=== PATIENT | male | born 1935 | race Caucasian/White ===

== ENCOUNTER 2016-08-18 17:16 | Inpatient (IN) | payer MEDICARE ==
[~2016-08-18] VITALS: Ht 190.5 cm; Wt 74.1 kg
[2016-08-18 17:20] VITALS: BP 129/61; PULSE 98; RESP 19; TEMP 101.1; O2SAT 94
[2016-08-18] MEDS ORDERED: TAMS0.4C4 PO (17:48)
[2016-08-18] MEDS ORDERED: CARB25TA9 PO ×2 (17:48→19:51)
[2016-08-18] MEDS ORDERED: SIMV40TA PO (17:48)
[2016-08-18] MEDS ORDERED: METO25TA3 PO (17:48)
[2016-08-18] MEDS ORDERED: LISI-515 PO (17:48)
[2016-08-18] MEDS ORDERED: ASPI1TAB69 PO (17:48)
[2016-08-18 17:49] VITALS: BP 158/61; PULSE 91; RESP 18; TEMP 101; O2SAT 95
[2016-08-18] MEDS ORDERED: PIPERACIL-TAZO 3.375 GM PREMIX 50 ML IV ONE (18:00)
[2016-08-18] MEDS ORDERED: ACETAMINOPHEN 325 MG TAB PO ONE (18:00)
[2016-08-18] MEDS ORDERED: SODIUM CHLOR 0.9% 1000 ML INJ 1,000 ML IV ONE ×2 (18:00→19:00)
[2016-08-18] MEDS ORDERED: VANCOMYCIN INJ 1,150 MG in SODIUM CHLOR 0.9% 250 ML INJ 250 ML IV ONE (18:00)
--- NOTE | 2016-08-18 18:00 | PD ---
HPI Chief Complaint: Respiratory Symptoms Time Seen by Provider: 17:43 Travel History International Travel<30 days: No Contact w/Intl Traveler<30days: No Traveled to known affect area: No History of Present Illness HPI Patient is an 80-year-old male with history of hypertension, hyperlipidemia, Parkinson's disease who presents to emergency room with his son for evaluation of fevers, coughs, mental status changes for the past week. Patient reports that he has not been feeling well for the past week, reports that he has had increased nasal congestion, a productive cough, and intermittent fevers. Patient's son has been giving patient acetaminophen for his fevers, patient did receive a dose of aspirin prior to coming to the emergency room. Reports that he has been eating and drinking like his normal self, reports that today, patient appeared more lethargic and weak. He is alert and oriented 3, reports "I don't feel well." Patient denies any chest pain or shortness of breath. Patient denies any abdominal pain, nausea or vomiting. Patient with no sick contacts at home. PFSH Past Medical History High Cholesterol: Yes Diminished Hearing: Yes ([facility] [employer] [employer]) Hypertension: Yes Parkinson's Disease: Yes Influenza Vaccination: Yes ?: Not Past Surgical History Cardiac Surgery: Yes (ATHERECTOMY) Eye Surgery: Yes ([facility] [employer]) Social History Alcohol Use: No Tobacco Use: No Allergies-Medications (Allergen,Severity, Reaction): Coded Allergies: Penicillin (Verified Allergy, Unknown, 08/18/16) Reported Meds & Prescriptions Reported Meds & Active Scripts Active Reported Simvastatin 40 Mg Tab 40 Mg PO HS Aspirin 81 Mg Tabdr 81 Mg PO HS NEB Carbidopa-Levodopa 25-100 Mg Tab 1 Tab PO Q8HR Metoprolol Tartrate 25 Mg Tab 25 Mg PO DAILY Lisinopril 20 Mg Tab 20 Mg PO DAILY Tamsulosin (Tamsulosin HCl) 0.4 Mg Cap 0.4 Mg PO HS Review of Systems General / Constitutional: Positive: Fever, Chills Eyes: No: Visual changes HENT: Positive: Congestion, No: Headaches Cardiovascular: No: Chest Pain or Discomfort Respiratory: Positive: Cough, No: Shortness of Breath Gastrointestinal: No: Abdominal Pain Genitourinary: No: Dysuria Musculoskeletal: Positive: Myalgias, Weakness, No: Pain Skin: No Rash Neurologic: Positive: Weakness Psychiatric: No: Depression Endocrine: No: Polydipsia Hematologic/Lymphatic: No: Easy Bruising Physical Exam Narrative GENERAL: Moderate distress SKIN: Focused skin assessment warm/dry. HEAD: Atraumatic. Normocephalic. EYES: Pupils equal and round. No scleral icterus. No injection or drainage. ENT: No nasal bleeding or discharge. Mucous membranes pink and moist. NECK: Trachea midline. No JVD. CARDIOVASCULAR: Tachycardic. No murmur appreciated. RESPIRATORY: No accessory muscle use. Rhonchi to lung bases. Breath sounds equal bilaterally. GASTROINTESTINAL: Abdomen soft, non-tender, nondistended. Hepatic and splenic margins not palpable. MUSCULOSKELETAL: No obvious deformities. No clubbing. No cyanosis. No edema. NEUROLOGICAL: Awake and alert. No obvious cranial nerve deficits. Motor grossly within normal limits. Normal speech. PSYCHIATRIC: Appropriate mood and affect; insight and judgment normal. Data Data Last Documented VS Vital Signs Date Time Temp Pulse Resp B/P Pulse Ox O2 Delivery O2 Flow Rate FiO2 08/18/16 17:35 113 08/18/16 17:20 101.1 19 129/61 94 Orders Electrocardiogram (08/18/16 17:48) Complete Blood Count With Diff (08/18/16 17:48) Comprehensive Metabolic Panel (08/18/16 17:48) Prothrombin Time / Inr (Pt) (08/18/16 17:48) Act Partial Throm Time (Ptt) (08/18/16 17:48) Lactic Acid Sepsis Protocol (08/18/16 17:48) Magnesium (Mg) (08/18/16 17:48) Ckmb (Isoenzyme) Profile (08/18/16 17:48) Troponin I (08/18/16 17:48) Urinalysis - C+S If Indicated (08/18/16 17:48) Influenzae A/B Antigen (08/18/16 17:48) Blood Culture (08/18/16 17:48) Chest, Single Ap (08/18/16 17:48) Blood Glucose (08/18/16 17:48) Ecg Monitoring (08/18/16 17:48) Iv Access Insert/Monitor (08/18/16 17:48) Oximetry (08/18/16 17:48) Oxygen Administration (08/18/16 17:48) Acetaminophen (Tylenol) (08/18/16 18:00) Sodium Chlor 0.9% 1000 Ml Inj (Ns 1000 M (08/18/16 18:00) MDM Medical Decision Making Medical Screen Exam Complete: Yes Emergency Medical Condition: Yes Interpretation(s) Vital Signs Date Time Temp Pulse Resp B/P Pulse Ox O2 Delivery O2 Flow Rate FiO2 08/18/16 17:35 113 08/18/16 17:20 101.1 98 19 129/61 94 Differential Diagnosis Pneumonia, influenza, dehydration, electrolyte abnormality, ACS, viral syndrome Narrative Course Patient is an 80-year-old male who presents to emergency room for evaluation of possible pneumonia. Patient has not been feeling well for the past 5 days, reports cough, congestion, fever and chills. Patient's son who lives with him, reports the patient is more lethargic than normal, reports that he appears to be more "tired and sleepy today." Upon arrival to emergency room, patient is febrile with temperature of 101.1. Acetaminophen was ordered for patient. Patient was tachycardic with a heart rate in the 113, initial pulse ox was 94% on room air. Sepsis labs ordered for patient including lactate and blood cultures. He was ordered IV fluids, antibiotics ordered as well. Sepsis Criteria SIRS Criteria (2 or more): Temp > 100.9 or < 96.8, Heart rate over 90 Nayla Burch DO August 18, 2016 18:00
[2016-08-18 18:06] LABS: BLOOD, URINE SMALL (NEG); GLUCOSE,URINE NEG (NEG); KETONE, URINE TRACE mg/dL (NEG); NITRITE,URINE NEG (NEG); PH, URINE 5.5 (5.0-8.5)
[2016-08-18 18:07] LABS: AUTOMATED NEUTROPHIL # 9.8 TH/MM3 (1.8-7.7); BASOPHIL # 0.1 TH/MM3 (0-0.2); BASOPHIL % 0.5 % (0.0-2.0); EOSINOPHIL % 0.3 % (0.0-4.0); HEMATOCRIT 35.9 % (39.0-51.0); LYMPHOCYTE # 0.2 TH/MM3 (1.0-4.8); MEAN CELL VOLUME 96.3 FL (80.0-100.0); MEAN CORPUSCULAR HEMOGLOBIN 32.8 PG (27.0-34.0); MEAN CORPUSCULAR HGB CONC 34.1 % (32.0-36.0); MONO % 6.7 % (0.0-8.0); NEUT % 90.5 % (16.0-70.0); PLATELET COUNT 212 TH/MM3 (150-450); RED BLOOD COUNT 3.73 MIL/MM3 (4.50-5.90); RED CELL DISTRIBUTION WIDTH 13.5 % (11.6-17.2); WHITE BLOOD COUNT 10.8 TH/MM3 (4.0-11.0)
[2016-08-18 18:08] LABS: HEMO FLAGS DIFF FINAL
[2016-08-18 18:17] VITALS: BP 140/60; PULSE 88; RESP 18; O2SAT 99
[2016-08-18 18:21] LABS: METHOD OF COLLECTION CATH; URINE COLOR YELLOW (YELLW/STRAW)
[2016-08-18 18:22] LABS: COMMENT (UR) CATH-CULT NOT IND; CULTURE IF INDICATED CATH CULTURE NOT IND; MUCUS URINE FEW /lpf (OCC); SQUAMOUS EPITHELIAL CELL URINE 0-5 /hpf (0-5); WBC, URINE 0-2 /hpf (0-5)
[2016-08-18 18:24] LABS: CHLORIDE 108 MEQ/L (98-107); POTASSIUM 3.6 MEQ/L (3.5-5.1); SODIUM (NA) 144 MEQ/L (136-145)
[2016-08-18 18:28] LABS: ANION GAP 8 MEQ/L (5-15); BICARBONATE 28.4 MEQ/L (21.0-32.0); BLOOD UREA NITROGEN 21 MG/DL (7-18)
[2016-08-18 18:31] LABS: ALT (GPT) 31 U/L (12-78); AST (GOT) 34 U/L (15-37); GLOMERULAR FILTRATION RATE 77 ML/MIN (>89)
[2016-08-18 18:32] LABS: TOTAL BILIRUBIN ADULT 0.6 MG/DL (0.2-1.0)
[2016-08-18 18:34] LABS: ALKALINE PHOSPHATASE 67 U/L (45-117)
[2016-08-18 18:40] LABS: APTT (PATIENT) 28.8 SEC (24.3-30.1); PROTHROMBIN TIME - PATIENT 10.7 SEC (9.8-11.6)
[2016-08-18 18:52] LABS: CREATINE KINASE 80 U/L (39-308)
--- NOTE | 2016-08-18 18:53 | RADHPO ---
EXAM DATE/TIME: 08/18/2016 18:03 [facility] COMPARISON: No previous studies available for comparison. INDICATIONS : Cough, congestion MEDICAL HISTORY : None. SURGICAL HISTORY : None. ENCOUNTER: Initial ACUITY: 1 week PAIN SCORE: 0/10 LOCATION: Bilateral chest FINDINGS: There is airspace consolidation left lung base most characteristic of pneumonia. Right lung clear. No significant effusion. Heart size normal. Tortuous aorta. CONCLUSION: 1. Airspace consolidation left lung base most characteristic of pneumonia. Yovani Ibarra MD on August 18, 2016 at 18:47 Board Certified Radiologist. This report was verified electronically.
[2016-08-18 18:56] VITALS: BP 144/58; PULSE 80; RESP 18; TEMP 99.9; O2SAT 97
--- NOTE | 2016-08-18 19:06 | PD ---
Data Data Last Documented VS Vital Signs Date Time Temp Pulse Resp B/P Pulse Ox O2 Delivery O2 Flow Rate FiO2 08/18/16 18:56 99.9 80 18 144/58 97 Nasal Cannula 2 Orders Electrocardiogram (08/18/16 17:48) Complete Blood Count With Diff (08/18/16 17:48) Comprehensive Metabolic Panel (08/18/16 17:48) Prothrombin Time / Inr (Pt) (08/18/16 17:48) Act Partial Throm Time (Ptt) (08/18/16 17:48) Lactic Acid Sepsis Protocol (08/18/16 17:48) Magnesium (Mg) (08/18/16 17:48) Ckmb (Isoenzyme) Profile (08/18/16:48) Troponin I (08/18/16 17:48) Urinalysis - C+S If Indicated (08/18/16 17:48) Influenzae A/B Antigen (08/18/16 17:48) Blood Culture (08/18/16 17:48) Chest, Single Ap (08/18/16 17:48) Blood Glucose (08/18/16 17:48) Ecg Monitoring (08/18/16 17:48) Iv Access Insert/Monitor (08/18/16 17:48) Oximetry (08/18/16 17:48) Oxygen Administration (08/18/16 17:48) Acetaminophen (Tylenol) (08/18/16 18:00) Sodium Chlor 0.9% 1000 Ml Inj (Ns 1000 M (08/18/16 18:00) Piperacil-Tazo 3.375 Gm Premix (Zosyn 3. (08/18/16 18:00) Vancomycin Inj (Vancomycin Inj) (08/18/16 18:00) Sodium Chlor 0.9% 1000 Ml Inj (Ns 1000 M (08/18/16 19:00) Admit Order (Ed Use Only) (08/18/16 ) Labs Laboratory Tests Test 08/18/16 08/18/16 17:45 18:00 White Blood Count 10.8 TH/MM3 Red Blood Count 3.73 MIL/MM3 Hemoglobin 12.3 GM/DL Hematocrit 35.9 % Mean Corpuscular Volume 96.3 FL Mean Corpuscular Hemoglobin 32.8 PG Mean Corpuscular Hemoglobin 34.1 % Concent Red Cell Distribution Width 13.5 % Platelet Count 212 TH/MM3 Mean Platelet Volume 8.3 FL Neutrophils (%) (Auto) 90.5 % Lymphocytes (%) (Auto) 2.0 % Monocytes (%) (Auto) 6.7 % Eosinophils (%) (Auto) 0.3 % Basophils (%) (Auto) 0.5 % Neutrophils # (Auto) 9.8 TH/MM3 Lymphocytes # (Auto) 0.2 TH/MM3 Monocytes # (Auto) 0.7 TH/MM3 Eosinophils # (Auto) 0.0 TH/MM3 Basophils # (Auto) 0.1 TH/MM3 CBC Comment DIFF FINAL Differential Comment Prothrombin Time 10.7 SEC Prothromb Time International 1.0 RATIO Ratio Activated Partial 28.8 SEC Thromboplast Time Sodium Level 144 MEQ/L Potassium Level 3.6 MEQ/L Chloride Level 108 MEQ/L Carbon Dioxide Level 28.4 MEQ/L Anion Gap 8 MEQ/L Blood Urea Nitrogen 21 MG/DL Creatinine 0.94 MG/DL Estimat Glomerular Filtration 77 ML/MIN Rate Random Glucose 134 MG/DL Lactic Acid Level 2.6 mmol/L Calcium Level 8.2 MG/DL Magnesium Level 2.0 MG/DL Total Bilirubin 0.6 MG/DL Aspartate Amino Transf 34 U/L (AST/SGOT) Alanine Aminotransferase 31 U/L (ALT/SGPT) Alkaline Phosphatase 67 U/L Total Creatine Kinase 80 U/L Troponin I LESS THAN 0.02 NG/ML Total Protein 6.6 GM/DL Albumin 3.1 GM/DL Urine Collection Type CATH Urine Color YELLOW Urine Turbidity CLEAR Urine pH 5.5 Urine Specific [place] 1.018 Urine Protein NEG mg/dL Urine Glucose (UA) NEG mg/dL Urine Ketones TRACE mg/dL Urine Occult Blood SMALL Urine Nitrite NEG Urine Bilirubin NEG Urine Leukocyte Esterase NEG Urine RBC 10-14 /hpf Urine WBC 0-2 /hpf Urine Squamous Epithelial 0-5 /hpf Cells Urine Mucus FEW /lpf Microscopic Urinalysis Comment CATH-CULT NOT IND Urine Collection Time 18:00 [facility] Supervised Visit with JIM: Yes Narrative Course 80-year-old with hypertension hyperlipidemia and Parkinson's disease here with fever confusion cough with labs suggestive pneumonia and sepsis. Labs show a lactate of 2.5, normal white count. Chest exercise left lower lobe infiltrate suggestive of pneumonia. Patient was initially seen by Dr. Burch. Initially was empirically covered with vancomycin and Zosyn. Was later noted that he does have a penicillin allergy with rash. He did fine with the Zosyn. He is feeling improved this point. He received 2 L of fluid. I spoke with Dr. hernandez, will admit the patient for pneumonia and sepsis. Diagnosis Primary Impression: Sepsis Additional Impression: Pneumonia Admitting Information Admitting Physician Requests: Admit Buddy Santos MD August 18, 2016 19:06
[2016-08-18] MEDS ORDERED: ACETAMINOPHEN 325 MG TAB PO PRN (19:30)
[2016-08-18 20:00] VITALS: BP 110/62; PULSE 75; RESP 16; TEMP 99.2; O2SAT 97
[2016-08-18 20:01] LABS: LACTIC ACID GHOST NOT REPORTABLE
[2016-08-18] MEDS: LEVOFLOXACIN 750 MG PREMIX INJ 150 ML IV SCH (20:19)
[2016-08-18 20:21] VITALS: BP 131/61; PULSE 77; RESP 18; TEMP 99.5; O2SAT 97
--- NOTE | 2016-08-18 20:28 | MH ---
cc: VEGA AQUINO M.D. DATE OF ADMISSION: 08/18/2016 ADMITTING DIAGNOSIS: 1. Left lower lobe pneumonia. 2. Hypertension. 3. Hyperlipidemia. 4. Coronary artery disease with prior atherectomy. 5. Parkinson's disease. 6. Benign prostate hypertrophy. HISTORY OF PRESENT ILLNESS: This is a pleasant 80-year-old white male with Parkinson disease, hypertension, hyperlipidemia who started about five days ago with cough and runny nose. He was coughing up yellow mucus. He however earlier today started running a fever with increased weakness and it was affecting his Parkinson disease where he was having trouble with more rigidity and getting around. He was a little delusional according to his son earlier today when his temperature was up. He was having some tremors. He was brought to the emergency room where an x-ray showed the left lower lobe pneumonia. He had a temperature register to 101.1. He is being admitted for pneumonia. He originally had an elevated lactic acid and was mildly tachycardiac with a pulse rate of 113 so he was for concerned about sepsis. In the emergency department, they did give him some vancomycin and Zosyn IV. He denies any shortness of breath. He is much more towards his baseline and mental status according to the son at this time when I am seeing him. PAST MEDICAL HISTORY: 1. Coronary artery disease with angina and had percutaneous transluminal atherectomy back in 1993. He has had no cardiac problems since then. No history of myocardial infarction or congestive heart failure. 2. He is under treatment for hypertension. 3. Hyperlipidemia. 4. Benign prostate hypertrophy. 5. Parkinson's disease. He was diagnosed with Parkinson's disease in 2012. 6. He has had no peptic ulcer disease, liver or kidney disease, no stroke or seizures, no cancer, no history of lung disease, no diabetes or thyroid disease. PAST SURGICAL HISTORY: 1. Percutaneous transluminal atherectomy in 1993. 2. He has had tonsillectomy. 3. He had one colonoscopy in the past that was negative.. 4. He had an elective circumcision at age 3. 5. He has had bilateral cataract extractions and lens implants. ALLERGIES: PENICILLIN. CURRENT MEDICATIONS: 1. Simvastatin 40 milligrams a day. 2. Carbidopa / levodopa 25 / 100. He takes 1-1/2 tablets every six hours. 3. Metoprolol 25 milligrams a day. 4. Lisinopril 20 milligrams a day. 5. Tamsulosin 0.4 milligrams at bedtime. 6. Aspirin 81 milligrams a day. FAMILY HISTORY: His dad at 74 of a ruptured aneurysm. His mom at 44. She either had ovarian or colon cancer, he does not know which type. SOCIAL HISTORY: He is from his first . His second several years ago. He only has an occasional social drink. He has never smoked. He is currently living with his son here in the [facility] and moved here from [place] in March. 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 REVIEW OF SYSTEMS: GENERAL: He has had the fever and the weakness as mentioned. HEAD, EYES, EARS, NOSE, THROAT: He has had a runny nose. Denies sore throat. No vision symptoms. He does wear hearing aids both ears. CARDIOVASCULAR: No chest pain, orthopnea, PND. PULMONARY: He has had the cough. He denies any wheezing or shortness of breath. GI: No nausea, vomiting, melena, rectal bleeding or diarrhea. : No dysuria or hematuria. He is urinating adequately with tamsulosin. EXTREMITIES: He gets just occasional slight swelling of his ankles. No other complaints. SKIN: Without rash. NEUROLOGIC: He has Parkinson's disease. It is been stable on his medication. PHYSICAL EXAMINATION: GENERAL: Pleasant white male with Parkinson disease. VITAL SIGNS: His temperature was highest was 101.1 at times, pulse was 113 but now is down to 80, blood pressure 144/58, O2 sat 97% on 2 liters. HEAD, EYES, EARS, NOSE, THROAT: He has hearing aids both ears. Nose negative. Pupils equal. Sclerae nonicteric. Mouth without lesions. NECK: Without bruit. No JVD. HEART: Regular rate and rhythm. No murmur. LUNGS: He has some crackles in the left base otherwise clear. ABDOMEN: Soft, nontender, no mass. EXTREMITIES: No edema. Pulses 2+ in the feet. SKIN: Without rash. NEUROLOGIC: He has some slight cogwheel rigidity. No significant tremor noted. We did not attempt to walk him. LABORATORY: His sodium and potassium are 144 and 3.6, CO2 28.4, BUN 21, creatinine 0.9, lactic acid initially was 2.6. His AST, ALT alkaline phosphatase, creatinine kinase and troponin were normal. Total protein 6.6, calcium 8.2, random glucose 134, GFR 77. White count was 10.8 with hemoglobin of 12.3, platelets were normal. Coags were normal. INR was normal at 1.0. Urinalysis shows 10 to 14 RBCs, 0 to 2 WBCs. IMAGING STUDIES: Chest x-ray showed airspace consolidation of the left base characteristic of pneumonia. The right lung was clear. There was a tortuous aorta. The heart size was normal. ASSESSMENT: As noted. PLAN: 1. We are going to put him on IV Levaquin. 2. We will use SCDs and DIANDRA hose for DVT prophylaxis. 3. He will be maintained on his regular medications. 4. Anticipate likely around 48 hours of hospitalization with IV antibiotics for treatment of his pneumonia. 5. We will give him Tylenol for any elevated temperature. 6. Supplemental oxygen as needed. MD GRIS Kelly/ROBERTO /7:57 PM /8:15 PM
[2016-08-18] MEDS: TAMSULOSIN HCL 0.4 MG CAP PO SCH (20:32)
[2016-08-18] MEDS: ASPIRIN EC 81 MG TABEC PO SCH (22:01)
[2016-08-18] MEDS: CARBIDOPA/LEVODOPA 25 MG/100 MG TAB PO SCH (22:01)
[2016-08-18] MEDS: PRAVASTATIN SOD 80 MG TAB PO SCH (22:01)
[2016-08-19] VITALS: BP 112/61; PULSE 72; RESP 17; TEMP 97.9; O2SAT 100
[2016-08-19 06:47] LABS: AUTOMATED NEUTROPHIL # 17.4 TH/MM3 (1.8-7.7); BASOPHIL % 0.2 % (0.0-2.0); EOSINOPHIL # 0.1 TH/MM3 (0-0.4); EOSINOPHIL % 0.5 % (0.0-4.0); HEMATOCRIT 33.7 % (39.0-51.0); LYMPH % 5.4 % (9.0-44.0); LYMPHOCYTE # 1.1 TH/MM3 (1.0-4.8); MEAN CELL VOLUME 95.9 FL (80.0-100.0); MEAN CORPUSCULAR HEMOGLOBIN 31.3 PG (27.0-34.0); MEAN CORPUSCULAR HGB CONC 32.7 % (32.0-36.0); MONO % 7.2 % (0.0-8.0); NEUT % 86.7 % (16.0-70.0); PLATELET COUNT 224 TH/MM3 (150-450); RED BLOOD COUNT 3.52 MIL/MM3 (4.50-5.90); RED CELL DISTRIBUTION WIDTH 13.2 % (11.6-17.2)
[2016-08-19 06:55] LABS: HEMO FLAGS DIFF FINAL
--- NOTE | 2016-08-19 06:57 | HHI.PR ---
Subjective Remarks No shortness of breath. Patient is coughing up sputum occasionally. No other complaints. Objective Vitals Vital Signs Date Time Temp Pulse Resp B/P Pulse Ox O2 Delivery O2 Flow Rate FiO2 08/19/16 00:00 97.9 72 17 112/61 100 08/18/16 22:02 97 Nasal Cannula 2.00 08/18/16 20:21 99.5 77 18 131/61 97 Nasal Cannula 2 08/18/16 20:00 99.2 75 16 110/62 97 08/18/16 18:56 99.9 80 18 144/58 97 Nasal Cannula 2 08/18/16 18:17 88 18 140/60 99 Nasal Cannula 2 08/18/16 18:08 96 Room Air 08/18/16 17:49 101.0 91 18 158/61 95 Room Air 08/18/16 17:35 113 08/18/16 17:20 101.1 98 19 129/61 94 08/18/16 08/18/16 08/19/16 15:00 23:00 07:00 Intake Total 2250 ml 240 ml Output Total 200 ml 300 ml Balance 2050 ml -60 ml Intake Oral 240 ml IV Total 2250 ml Output Urine Total 200 ml 300 ml # Voids 1 Result Diagram: 08/18/16 1745 08/18/16 1745 Other Results Laboratory Tests Test 08/18/16 08/18/16 08/18/16 17:45 18:00 20:10 White Blood Count 10.8 TH/MM3 Red Blood Count 3.73 MIL/MM3 Hemoglobin 12.3 GM/DL Hematocrit 35.9 % Mean Corpuscular Volume 96.3 FL Mean Corpuscular Hemoglobin 32.8 PG Mean Corpuscular Hemoglobin 34.1 % Concent Red Cell Distribution Width 13.5 % Platelet Count 212 TH/MM3 Mean Platelet Volume 8.3 FL Neutrophils (%) (Auto) 90.5 % Lymphocytes (%) (Auto) 2.0 % Monocytes (%) (Auto) 6.7 % Eosinophils (%) (Auto) 0.3 % Basophils (%) (Auto) 0.5 % Neutrophils # (Auto) 9.8 TH/MM3 Lymphocytes # (Auto) 0.2 TH/MM3 Monocytes # (Auto) 0.7 TH/MM3 Eosinophils # (Auto) 0.0 TH/MM3 Basophils # (Auto) 0.1 TH/MM3 CBC Comment DIFF FINAL Differential Comment Prothrombin Time 10.7 SEC Prothromb Time International 1.0 RATIO Ratio Activated Partial 28.8 SEC Thromboplast Time Sodium Level 144 MEQ/L Potassium Level 3.6 MEQ/L Chloride Level 108 MEQ/L Carbon Dioxide Level 28.4 MEQ/L Anion Gap 8 MEQ/L Blood Urea Nitrogen 21 MG/DL Creatinine 0.94 MG/DL Estimat Glomerular Filtration 77 ML/MIN Rate Random Glucose 134 MG/DL Lactic Acid Level 2.6 mmol/L 1.1 mmol/L Calcium Level 8.2 MG/DL Magnesium Level 2.0 MG/DL Total Bilirubin 0.6 MG/DL Aspartate Amino Transf 34 U/L (AST/SGOT) Alanine Aminotransferase 31 U/L (ALT/SGPT) Alkaline Phosphatase 67 U/L Total Creatine Kinase 80 U/L Troponin I LESS THAN 0.02 NG/ML Total Protein 6.6 GM/DL Albumin 3.1 GM/DL Urine Collection Type CATH Urine Color YELLOW Urine Turbidity CLEAR Urine pH 5.5 Urine Specific [place] 1.018 Urine Protein NEG mg/dL Urine Glucose (UA) NEG mg/dL Urine Ketones TRACE mg/dL Urine Occult Blood SMALL Urine Nitrite NEG Urine Bilirubin NEG Urine Leukocyte Esterase NEG Urine RBC 10-14 /hpf Urine WBC 0-2 /hpf Urine Squamous Epithelial 0-5 /hpf Cells Urine Mucus FEW /lpf Microscopic Urinalysis Comment CATH-CULT NOT IND Urine Collection Time 18:00 Imaging Last Impressions Chest X-Ray 08/18/16 [id number] Signed Impressions: Service Date/Time: Thursday, August 18, 2016 18:03 - CONCLUSION: 1. Airspace consolidation left lung base most characteristic of pneumonia. Yovani Ibarra MD Objective Remarks Exam: Pleasant WM with Parkinson's disease HEENT: Pupils equal, no scleral icterus, mouth negative Neck: No JVD Heart:RRR Lungs: Faint crackles in left lung base Abdomen: Soft, nontender, no masses Neuro: features of Parkinson's disease with flat affect, cogwheel rigidity, psychomotor sluggishness, No focal weakness A/P Assessment and Plan Assessment: --Pneumonia left lung base --Parkinson's disease --Hypertension --Hyperlipidemia --Coronary artery disease with prior percutaneous atherectomy of coronary artery several years ago --BPH Plan: Continue Levaquin IV. Continue routine medications. Emmanuel Reddy MD August 19, 2016 06:57
[2016-08-19 08:00] VITALS: BP 118/71; PULSE 67; RESP 20; TEMP 98; O2SAT 99
[2016-08-19] MEDS: LISINOPRIL 20 MG TAB PO SCH (09:26)
[2016-08-19] MEDS: METOPROLOL TARTRATE 25 MG TAB PO SCH (09:26)
[2016-08-19] MEDS: CARBIDOPA/LEVODOPA 25 MG/100 MG TAB PO SCH ×3 (09:26→20:56)
--- NOTE | 2016-08-19 11:20 | EKG ---
Date Performed: 08/18/2016 Time Performed: 18:14:02 PTAGE: 80 years EKG: Sinus rhythm rSr'(V1) - probable normal variant Low QRS voltages in precordial leads Borderline ECG NO PREVIOUS TRACING DOCTOR: Simon Carbajal Interpretating Date/Time 08/19/2016 11:15:42
[2016-08-19 12:00] VITALS: BP 130/63; PULSE 58; RESP 18; TEMP 97.9; O2SAT 100
[2016-08-19 16:00] VITALS: BP 169/71; PULSE 63; RESP 18; TEMP 97.3; O2SAT 100
[2016-08-19 19:00] VITALS: BP 150/79; PULSE 65; RESP 16; TEMP 97.3; O2SAT 100
[2016-08-19] MEDS: ASPIRIN EC 81 MG TABEC PO SCH (20:55)
[2016-08-19] MEDS: LEVOFLOXACIN 750 MG PREMIX INJ 150 ML IV SCH (20:55)
[2016-08-19] MEDS: PRAVASTATIN SOD 80 MG TAB PO SCH (20:56)
[2016-08-19] MEDS: TAMSULOSIN HCL 0.4 MG CAP PO SCH (20:56)
[2016-08-20] VITALS: BP 156/83; PULSE 67; RESP 20; TEMP 97.6; O2SAT 99
[2016-08-20 05:40] LABS: AUTOMATED NEUTROPHIL # 12.4 TH/MM3 (1.8-7.7); BASOPHIL % 0.2 % (0.0-2.0); EOSINOPHIL # 0.3 TH/MM3 (0-0.4); EOSINOPHIL % 1.8 % (0.0-4.0); HEMATOCRIT 35.8 % (39.0-51.0); HEMO FLAGS DIFF FINAL; LYMPH % 5.8 % (9.0-44.0); LYMPHOCYTE # 0.8 TH/MM3 (1.0-4.8); MEAN CELL VOLUME 96.7 FL (80.0-100.0); MEAN CORPUSCULAR HGB CONC 32.1 % (32.0-36.0); MONO % 6.3 % (0.0-8.0); NEUT % 85.9 % (16.0-70.0); PLATELET COUNT 219 TH/MM3 (150-450); RED BLOOD COUNT 3.71 MIL/MM3 (4.50-5.90); RED CELL DISTRIBUTION WIDTH 13.2 % (11.6-17.2); WHITE BLOOD COUNT 14.4 TH/MM3 (4.0-11.0)
--- NOTE | 2016-08-20 07:01 | HHI.PR ---
Subjective Remarks No shortness of breath. He is coughing up mucus. Objective Vitals Vital Signs Date Time Temp Pulse Resp B/P Pulse Ox O2 Delivery O2 Flow Rate FiO2 08/20/16 00:00 97.6 67 20 156/83 99 08/19/16 20:00 100 Nasal Cannula 2.00 08/19/16 19:00 97.3 65 16 150/79 100 08/19/16 16:00 97.3 63 18 169/71 100 08/19/16 12:00 97.9 58 18 130/63 100 08/19/16 08:00 98.0 67 20 118/71 99 08/19/16 08:00 Nasal Cannula 2.00 08/19/16 08/19/16 08/20/16 15:00 23:00 07:00 Intake Total 725 ml 410 ml 570 ml Output Total 875 ml 975 ml 540 ml Balance -150 ml -565 ml 30 ml Intake Oral 725 ml 240 ml 120 ml IV Total 170 ml 450 ml Output Urine Total 875 ml 975 ml 540 ml # Bowel Movements 0 0 0 Result Diagram: 08/20/16 0529 08/19/16 0630 Other Results Laboratory Tests Test 08/18/16 08/18/16 08/18/16 08/19/16 17:45 18:00 20:10 06:30 White Blood Count 10.8 TH/MM3 20.0 TH/MM3 Red Blood Count 3.73 MIL/MM3 3.52 MIL/MM3 Hemoglobin 12.3 GM/DL 11.0 GM/DL Hematocrit 35.9 % 33.7 % Mean Corpuscular Volume 96.3 FL 95.9 FL Mean Corpuscular Hemoglobin 32.8 PG 31.3 PG Mean Corpuscular Hemoglobin 34.1 % 32.7 % Concent Red Cell Distribution Width 13.5 % 13.2 % Platelet Count 212 TH/MM3 224 TH/MM3 Mean Platelet Volume 8.3 FL 8.1 FL Neutrophils (%) (Auto) 90.5 % 86.7 % Lymphocytes (%) (Auto) 2.0 % 5.4 % Monocytes (%) (Auto) 6.7 % 7.2 % Eosinophils (%) (Auto) 0.3 % 0.5 % Basophils (%) (Auto) 0.5 % 0.2 % Neutrophils # (Auto) 9.8 TH/MM3 17.4 TH/MM3 Lymphocytes # (Auto) 0.2 TH/MM3 1.1 TH/MM3 Monocytes # (Auto) 0.7 TH/MM3 1.4 TH/MM3 Eosinophils # (Auto) 0.0 TH/MM3 0.1 TH/MM3 Basophils # (Auto) 0.1 TH/MM3 0.0 TH/MM3 CBC Comment DIFF FINAL DIFF FINAL Differential Comment Prothrombin Time 10.7 SEC Prothromb Time International 1.0 RATIO Ratio Activated Partial 28.8 SEC Thromboplast Time Sodium Level 144 MEQ/L 147 MEQ/L Potassium Level 3.6 MEQ/L 4.0 MEQ/L Chloride Level 108 MEQ/L 110 MEQ/L Carbon Dioxide Level 28.4 MEQ/L 30.0 MEQ/L Anion Gap 8 MEQ/L 7 MEQ/L Blood Urea Nitrogen 21 MG/DL 18 MG/DL Creatinine 0.94 MG/DL 0.82 MG/DL Estimat Glomerular Filtration 77 ML/MIN 90 ML/MIN Rate Random Glucose 134 MG/DL 106 MG/DL Lactic Acid Level 2.6 mmol/L 1.1 mmol/L Calcium Level 8.2 MG/DL 8.1 MG/DL Magnesium Level 2.0 MG/DL Total Bilirubin 0.6 MG/DL Aspartate Amino Transf 34 U/L (AST/SGOT) Alanine Aminotransferase 31 U/L (ALT/SGPT) Alkaline Phosphatase 67 U/L Total Creatine Kinase 80 U/L Troponin I LESS THAN 0.02 NG/ML Total Protein 6.6 GM/DL Albumin 3.1 GM/DL Urine Collection Type CATH Urine Color YELLOW Urine Turbidity CLEAR Urine pH 5.5 Urine Specific [place] 1.018 Urine Protein NEG mg/dL Urine Glucose (UA) NEG mg/dL Urine Ketones TRACE mg/dL Urine Occult Blood SMALL Urine Nitrite NEG Urine Bilirubin NEG Urine Leukocyte Esterase NEG Urine RBC 10-14 /hpf Urine WBC 0-2 /hpf Urine Squamous Epithelial 0-5 /hpf Cells Urine Mucus FEW /lpf Microscopic Urinalysis Comment CATH-CULT NOT IND Urine Collection Time 18:00 Test 08/20/16 05:29 White Blood Count 14.4 TH/MM3 Red Blood Count 3.71 MIL/MM3 Hemoglobin 11.5 GM/DL Hematocrit 35.8 % Mean Corpuscular Volume 96.7 FL Mean Corpuscular Hemoglobin 31.0 PG Mean Corpuscular Hemoglobin 32.1 % Concent Red Cell Distribution Width 13.2 % Platelet Count 219 TH/MM3 Mean Platelet Volume 8.2 FL Neutrophils (%) (Auto) 85.9 % Lymphocytes (%) (Auto) 5.8 % Monocytes (%) (Auto) 6.3 % Eosinophils (%) (Auto) 1.8 % Basophils (%) (Auto) 0.2 % Neutrophils # (Auto) 12.4 TH/MM3 Lymphocytes # (Auto) 0.8 TH/MM3 Monocytes # (Auto) 0.9 TH/MM3 Eosinophils # (Auto) 0.3 TH/MM3 Basophils # (Auto) 0.0 TH/MM3 CBC Comment DIFF FINAL Differential Comment Imaging Last Impressions Chest X-Ray 08/18/16 [id number] Signed Impressions: Service Date/Time: Thursday, August 18, 2016 18:03 - CONCLUSION: 1. Airspace consolidation left lung base most characteristic of pneumonia. Yovani Ibarra MD Objective Remarks Exam: Pleasant WM with Parkinson's disease HEENT: Pupils equal, no scleral icterus, mouth negative Neck: No JVD Heart:RRR Lungs: Faint crackles in left lung base Abdomen: Soft, nontender, no masses Neuro: features of Parkinson's disease with flat affect, cogwheel rigidity, psychomotor sluggishness, No focal weakness A/P Assessment and Plan Assessment: --Pneumonia left lung base --Parkinson's disease --Hypertension --Hyperlipidemia --Coronary artery disease with prior percutaneous atherectomy of coronary artery several years ago --BPH Plan: Continue Levaquin IV. Continue routine medications. Repeat CBC tomorrow morning. If it is normal and if patient is afebrile then he likely can be discharged home on Levaquin. Emmanuel Reddy MD August 20, 2016 07:01
[2016-08-20 08:00] VITALS: BP 119/72; PULSE 75; RESP 18; TEMP 96.8; O2SAT 96
[2016-08-20] MEDS: LISINOPRIL 20 MG TAB PO SCH (08:50)
[2016-08-20] MEDS: METOPROLOL TARTRATE 25 MG TAB PO SCH (08:50)
[2016-08-20] MEDS: CARBIDOPA/LEVODOPA 25 MG/100 MG TAB PO SCH ×3 (08:50→20:38)
[2016-08-20 12:00] VITALS: BP 128/65; PULSE 62; RESP 18; TEMP 97.3; O2SAT 97
[2016-08-20 16:00] VITALS: BP 145/72; PULSE 62; RESP 18; TEMP 97.6; O2SAT 99
[2016-08-20 20:00] VITALS: BP 176/85; PULSE 67; RESP 16; TEMP 97.8; O2SAT 99
[2016-08-20] MEDS: LEVOFLOXACIN 750 MG PREMIX INJ 150 ML IV SCH (20:37)
[2016-08-20] MEDS: PRAVASTATIN SOD 80 MG TAB PO SCH (20:38)
[2016-08-20] MEDS: TAMSULOSIN HCL 0.4 MG CAP PO SCH (20:38)
[2016-08-20] MEDS: ASPIRIN EC 81 MG TABEC PO SCH (20:38)
[2016-08-21] VITALS: BP 164/81; PULSE 65; RESP 20; TEMP 97.6; O2SAT 98
[2016-08-21 06:39] LABS: AUTOMATED NEUTROPHIL # 6.1 TH/MM3 (1.8-7.7); BASOPHIL # 0.1 TH/MM3 (0-0.2); BASOPHIL % 0.8 % (0.0-2.0); EOSINOPHIL # 0.3 TH/MM3 (0-0.4); EOSINOPHIL % 4.4 % (0.0-4.0); HEMATOCRIT 35.1 % (39.0-51.0); LYMPH % 10.5 % (9.0-44.0); LYMPHOCYTE # 0.8 TH/MM3 (1.0-4.8); MEAN CELL VOLUME 97.3 FL (80.0-100.0); MEAN CORPUSCULAR HEMOGLOBIN 32.2 PG (27.0-34.0); MEAN CORPUSCULAR HGB CONC 33.1 % (32.0-36.0); MONO % 7.4 % (0.0-8.0); NEUT % 76.9 % (16.0-70.0); PLATELET COUNT 217 TH/MM3 (150-450); RED BLOOD COUNT 3.61 MIL/MM3 (4.50-5.90); RED CELL DISTRIBUTION WIDTH 13.2 % (11.6-17.2); WHITE BLOOD COUNT 7.9 TH/MM3 (4.0-11.0)
[2016-08-21 07:12] LABS: HEMO FLAGS DIFF FINAL
[2016-08-21] MEDS ORDERED: LEVO750T33 PO (07:32)
--- NOTE | 2016-08-21 07:45 | HHI.DS ---
Discharge Summary Admission Date August 18, 2016 at 19:04 Discharge Date: August 21, 2016 Admitting Diagnosis pneumonia, sepsis (1) Pneumonia Diagnosis: Principal (2) Parkinson disease Diagnosis: Secondary (3) Hypertension Diagnosis: Secondary (4) Hyperlipidemia Diagnosis: Secondary (5) BPH (benign prostatic hyperplasia) Diagnosis: Secondary (6) Coronary artery disease Diagnosis: Secondary Brief History 80 year old white male with Parkinson's disease, hypertension, hyperlipidemia, BPH, coronary artery disease (prior atherectomy of a coronary artery in 1993) who started with a cough and runny nose 5 days prior to coming to the ER. He was coughing up yellow mucus. His cough worsened and he started running a fever earlier in the day he came to the ER and was having more trouble with rigidity and getting around. He also was a little delusional when his temperature was elevated. He had a temperature of 101.1 in the ER and his chest x-ray showed an infiltrate in the left lung base suggestive of pneumonia. He was admitted for IV antibiotic therapy. He denies any shortness of breath or chest pain. CBC/BMP: 08/21/16 0535 08/19/16 0630 Significant Findings Laboratory Tests Test 08/20/16 08/21/16 05:29 05:35 White Blood Count 14.4 TH/MM3 7.9 TH/MM3 Red Blood Count 3.71 MIL/MM3 3.61 MIL/MM3 Hemoglobin 11.5 GM/DL 11.6 GM/DL Hematocrit 35.8 % 35.1 % Mean Corpuscular Volume 96.7 FL 97.3 FL Mean Corpuscular Hemoglobin 31.0 PG 32.2 PG Mean Corpuscular Hemoglobin 32.1 % 33.1 % Concent Red Cell Distribution Width 13.2 % 13.2 % Platelet Count 219 TH/MM3 217 TH/MM3 Mean Platelet Volume 8.2 FL 8.7 FL Neutrophils (%) (Auto) 85.9 % 76.9 % Lymphocytes (%) (Auto) 5.8 % 10.5 % Monocytes (%) (Auto) 6.3 % 7.4 % Eosinophils (%) (Auto) 1.8 % 4.4 % Basophils (%) (Auto) 0.2 % 0.8 % Neutrophils # (Auto) 12.4 TH/MM3 6.1 TH/MM3 Lymphocytes # (Auto) 0.8 TH/MM3 0.8 TH/MM3 Monocytes # (Auto) 0.9 TH/MM3 0.6 TH/MM3 Eosinophils # (Auto) 0.3 TH/MM3 0.3 TH/MM3 Basophils # (Auto) 0.0 TH/MM3 0.1 TH/MM3 CBC Comment DIFF FINAL DIFF FINAL Differential Comment Laboratory Tests Test 08/18/16 08/18/16 08/19/16 08/20/16 17:45 18:00 06:30 05:29 Red Blood Count 3.73 MIL/MM3 3.52 MIL/MM3 3.71 MIL/MM3 (4.50-5.90) (4.50-5.90) (4.50-5.90) Hemoglobin 12.3 GM/DL 11.0 GM/DL 11.5 GM/DL (13.0-17.0) (13.0-17.0) (13.0-17.0) Hematocrit 35.9 % 33.7 % 35.8 % (39.0-51.0) (39.0-51.0) (39.0-51.0) Neutrophils (%) (Auto) 90.5 % 86.7 % 85.9 % (16.0-70.0) (16.0-70.0) (16.0-70.0) Lymphocytes (%) (Auto) 2.0 % 5.4 % 5.8 % (9.0-44.0) (9.0-44.0) (9.0-44.0) Neutrophils # (Auto) 9.8 TH/MM3 17.4 TH/MM3 12.4 TH/MM3 (1.8-7.7) (1.8-7.7) (1.8-7.7) Lymphocytes # (Auto) 0.2 TH/MM3 0.8 TH/MM3 (1.0-4.8) (1.0-4.8) Chloride Level 108 MEQ/L 110 MEQ/L (98-107) (98-107) Blood Urea Nitrogen 21 MG/DL (7-18) Estimat Glomerular Filtration 77 ML/MIN (>89) Rate Random Glucose 134 MG/DL (74-106) Lactic Acid Level 2.6 mmol/L (0.4-2.0) Calcium Level 8.2 MG/DL 8.1 MG/DL (8.5-10.1) (8.5-10.1) Troponin I LESS THAN 0.02 NG/ML (0.02-0.05) Albumin 3.1 GM/DL (3.4-5.0) Urine Ketones TRACE mg/dL (NEG) Urine Occult Blood SMALL (NEG) Urine RBC 10-14 /hpf (0-3) Urine Mucus FEW /lpf (OCC) White Blood Count 20.0 TH/MM3 14.4 TH/MM3 (4.0-11.0) (4.0-11.0) Monocytes # (Auto) 1.4 TH/MM3 (0-0.9) Sodium Level 147 MEQ/L (136-145) Test 08/21/16 05:35 Red Blood Count 3.61 MIL/MM3 (4.50-5.90) Hemoglobin 11.6 GM/DL (13.0-17.0) Hematocrit 35.1 % (39.0-51.0) Neutrophils (%) (Auto) 76.9 % (16.0-70.0) Eosinophils (%) (Auto) 4.4 % (0.0-4.0) Lymphocytes # (Auto) 0.8 TH/MM3 (1.0-4.8) Imaging Last Impressions Chest X-Ray 08/18/16 2538 Signed Impressions: Service Date/Time: Thursday, August 18, 2016 18:03 - CONCLUSION: 1. Airspace consolidation left lung base most characteristic of pneumonia. Yovani Ibarra MD PE at Discharge Exam: Pleasant WM with Parkinson's disease HEENT: Pupils equal, no scleral icterus, mouth negative Neck: No JVD Heart:RRR Lungs: questionable minimal crackles in left lung base but definitely improved from admission Abdomen: Soft, nontender, no masses Neuro: features of Parkinson's disease with flat affect, cogwheel rigidity, psychomotor sluggishness, No focal weakness Hospital Course Patient was admitted and begun on IV Levaquin 750mg daily. His fever resolved in the first 24 hours and he has been afebrile for over 48 hours. His WBC count has come down to a normal range. He has no shortness of breath and he feels like he is able to go home. He lives with his son. He will be continued on Levaquin 750mg daily for 6 days and will followup with his PCP (Dr Zane Thornton) within one week. I recommended he repeat a chest x-ray in one week as an outpatient. Pt Condition on Discharge: Stable Discharge Disposition: Discharge Home Discharge Instructions DIET: Follow Instructions for: Heart Healthy Diet, Low Sodium Diet Activities you can perform: Regular-No Restrictions Follow up Referrals: PCP Follow-up - [address] Thornton New Orders: Abdomen / Chest FB, Child, 1VW - 1 Week X-RAY CHEST PA & LAT New Medications: Levofloxacin (Levofloxacin) 750 Mg Tab 750 MG PO DAILY Infection #6 Ref 0 TAB Continued Medications: Aspirin (Aspirin) 81 Mg Tabdr 81 MG PO HS NEB TAB Carbidopa-Levodopa (Carbidopa-Levodopa) 25-100 Mg Tab 1.5 TAB PO Q6HR WHILE AWAKE NEB Parkinson Disease Mgmt #90 Ref 0 TAB Lisinopril (Lisinopril) 20 Mg Tab 20 MG PO DAILY #30 Ref 0 TAB Metoprolol Tartrate (Metoprolol Tartrate) 25 Mg Tab 25 MG PO DAILY #30 Ref 0 TAB Simvastatin (Simvastatin) 40 Mg Tab 40 MG PO HS Cholesterol Management #30 Ref 0 TAB Tamsulosin (Tamsulosin) 0.4 Mg Cap 0.4 MG PO HS Manage Prostate Problems #30 Ref 0 CAP Emmanuel Reddy MD August 21, 2016 07:45
[2016-08-21] MEDS: CARBIDOPA/LEVODOPA 25 MG/100 MG TAB PO SCH (08:00)
[2016-08-21] MEDS: LISINOPRIL 20 MG TAB PO SCH (08:00)
[2016-08-21] MEDS: METOPROLOL TARTRATE 25 MG TAB PO SCH (08:00)
[2016-08-21 08:21] VITALS: BP 150/83; PULSE 70; RESP 19; TEMP 98.2; O2SAT 98
== END 2016-08-21 09:52 | disposition home or self-care (01) | DRG 195 ==
LOC: PHED 17:16 → PHEDA 19:04 → PH3B 20:45
PROVIDERS: ADMIT Family Medicine; ATTEND Family Medicine
DX: J18.9 Pneumonia, unspecified organism (principal); G20 Parkinson's disease; I10 Essential (primary) hypertension; E78.5 Hyperlipidemia, unspecified; I25.10 Atherosclerotic heart disease of native coronary artery without angina pectoris; N40.0 Benign prostatic hyperplasia without lower urinary tract symptoms; H91.93 Unspecified hearing loss, bilateral; Z88.0 Allergy status to penicillin; Z98.61 Coronary angioplasty status
CPT/HCPCS: 71010; 80048; 80053; 81001; 82550; 83605; 83735; 84484; 85025; 85610; 85730; 87040; 87804; 93005; 96365; 96367; J1956; J2543; J3370; J7030; J7050